=== PATIENT | female | born 2000 | race Caucasian/White ===

== ENCOUNTER 2022-03-12 12:34 | Emergency (ER) | payer OTHER ==
[~2022-03-12] VITALS: Ht 147.3 cm; Wt 52.2 kg
[2022-03-12 12:50] VITALS: BP_SYST 126
--- NOTE | 2022-03-12 13:17 | NUR ---
Placed in room 8 . Placed on sanitizer, blood pressure machine and pulse oximeter. To gown for exam. Side rails up. Report given to JORDAN SORTO.
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
--- NOTE | 2022-03-12 13:30 | NUR ---
ER DR. YIN AT THE BEDSIDE EXAMINING PT
[2022-03-12] MEDS ORDERED: SOM350 PO (16:13)
[2022-03-12] MEDS ORDERED: IBUP-1969 PO (16:13)
--- NOTE | 2022-03-12 16:53 | NUR ---
Patient given written and verbal discharge instructions and verbalizes understanding. ER DR. ANNAMARIA TRUJILLO discussed with patient the results and treatment provided. Patient in stable condition. ID arm band removed. Rx of SOMA, IBUPROFEN given. Patient educated on pain management and to follow up with PMD. Pain Scale 6/10. Opportunity for questions provided and answered. Medication side effect fact sheet provided.
== END 2022-03-12 16:46 | disposition home or self-care (01) ==
LOC: SED 12:34
DX: S13.4XXA Sprain of ligaments of cervical spine, initial encounter (principal); S33.5XXA Sprain of ligaments of lumbar spine, initial encounter; Z79.899 Other long term (current) drug therapy; V43.52XA Car driver injured in collision with other type car in traffic accident, initial encounter; Y93.89 Activity, other specified; Y92.89 Other specified places as the place of occurrence of the external cause; Y99.8 Other external cause status
CPT/HCPCS: 71045; 72040-TC; 72100-TC; 81025; 99284